=== PATIENT | female | born 1985 | race Caucasian/White ===

== ENCOUNTER 2019-10-27 16:47 | Emergency (ER) | payer OTHER ==
[~2019-10-27] VITALS: Ht 170.2 cm; Wt 61.0 kg
[2019-10-27 19:49] LABS: BASOPHILS % 0.4 % (0.0-2.0); EOSINOPHILS % 0.2 % (0.0-5.0); HEMATOCRIT. 36.5 % (36.0-48.0); HEMOGLOBIN. 12.6 g/dL (12.0-16.0); LYMPHOCYTES % 16.1 % (20.0-50.0); MEAN CORPUSCULAR HEMOGLOBIN 28.9 pg (28.0-32.0); MEAN CORPUSCULAR VOLUME 83.7 fL (81.0-99.0); MEAN PLATELET VOLUME 9.1 fl (7.4-10.4); MONOCYTES % 7.3 % (2.0-8.0); PLATELET 282 x1000/uL (130-400); RED BLOOD CELL COUNT 4.37 mill/uL (4.2-5.4); RED CELL DISTRIBUTION WIDTH 14.9 % (11.6-14.6)
[2019-10-27 19:57] LABS: CHLORIDE 106 mEq/L (98-107)
[2019-10-27 20:09] LABS: PROTHROMBIN TIME 10.3 sec (9.6-11.0)
[2019-10-27 22:52] VITALS: BP 115/66
== END 2019-10-27 22:57 | disposition home or self-care (01) ==
LOC: ER 16:47
DX: O46.91 Antepartum hemorrhage, unspecified, first trimester (principal); Z3A.11 11 weeks gestation of pregnancy
CPT/HCPCS: 36415; 76801; 80053; 81025; 85025; 86850; 86900; 99284